=== PATIENT | female | born 1970 | race Caucasian/White ===

== ENCOUNTER 2019-06-12 15:08 | Outpatient (CLI) | payer BC, SELFPAY ==
--- NOTE | ~2019-06-12 | CT_ITS ---
EXAMINATION: CT abdomen wo con DATE: 06/12/2019 15:33 INDICATION: Abdominal pain TECHNIQUE: Computed tomography (CT) of the abdomen was performed without intravenous contrast. Automa deanna exposure control and iterative reconstruction technique were employed. Exam dose: 1028.43 mGy-cm total exam DLP. COMPARISON: Right upper quadrant abdominal ultrasound FINDINGS: The lung bases are clear. Normal heart size. No pericardial or pleural effusion. The liver, gallbladder, spleen, pancreas, and adrenal glands and kidneys are unremarkable. No urinary tract calculus or hydroureteronephrosis is evident. Normal caliber of the abdominal aorta. No intraperitoneal or retroperitoneal mass lesion or adenopath y or ascites. Small sliding hiatal hernia. No bowel obstruction or intraperitoneal free air. There is prominent degenerative disc disease with associated minimal retrolisthesis at L4-5. IMPRESSION: Degenerative disc disease and associated minimal retrolisthesis at L4-5 Small sliding hiatal hernia. No other significant abnormality of the abdomen Reviewed, dictated and finalized at [facility]. Reviewed, dictated and finalized at location B. T DRYER
== END 2019-06-12 15:09 | disposition home or self-care (01) ==
LOC: ANHIMG 15:15
PROVIDERS: PCP Family Medicine; Visit Provider Physician Assistant
DX: R10.84 Generalized abdominal pain (principal); M51.36 Other intervertebral disc degeneration, lumbar region; K44.9 Diaphragmatic hernia without obstruction or gangrene
CPT/HCPCS: 74150

== ENCOUNTER 2020-12-18 10:36 | Emergency (ER) | payer BC, SELFPAY ==
[2020-12-18 10:44] VITALS: BP 140/87; PULSE 71; RESP 18; TEMP 36.6; O2SAT 98
[2020-12-18 11:06] VITALS: BP 140/87; PULSE 71; RESP 18; TEMP 36.6; O2SAT 98
--- NOTE | 2020-12-18 11:18 | ED.EAR ---
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 Patient states she has 1/2-week history of of R>>L ear discomfort, nominally associated with the recent swimming which seemed to worsen it. She mentions she has some right sinus tenderness and fullness; she has been seen by allergy in the past but is missed her most recent shots- but she is taking her meds. No smokers/pet triggers, fever, wheezing, CP, loss of taste or smell, S OB, vomiting/diarrhea, ear discharge, neuralgic type pain Related Data Home Medications Medication Instructions Recorded Confirmed cholecalciferol (vitamin D3) 250 250 mcg PO DAILY 02/24/20 12/18/20 mcg (10,000 unit) capsule vmanaaklwpbxn-bvpktlxznyvgnvsbwt-mmfmijrkaezbi 1 cap PO DAILY 02/24/20 12/18/20 capsule montelukast 10 mg tablet 10 mg PO DAILY 02/24/20 12/18/20 omeprazole 40 mg capsule,delayed 40 mg PO DAILY 02/24/20 12/18/20 release paroxetine HCl 10 mg tablet 10 mg PO DAILY 02/24/20 12/18/20 fluticasone propionate [Flovent 100 mcg INHALATION DAILY 12/18/20 12/18/20 Diskus] rizatriptan 10 mg PO PRN PRN 12/18/20 12/18/20 Allergies Allergy/AdvReac Type Severity Reaction Status Date / Time ketorolac [From Toradol] Allergy Intermediate Itching Verified 12/18/20 11:03 pneumococcal vaccine Allergy Intermediate Swelling Verified 12/18/20 11:03 cephalexin Allergy Unknown unknown Verified 12/18/20 11:03 azelastine AdvReac Intermediate migraine Verified 12/18/20 11:03 levofloxacin AdvReac Intermediate joint pain Verified 12/18/20 11:03 Review of Systems Review of Systems: General/Constitutional: No weight loss,fever Eyes: N0: Redness,discharge Ears/Nose/Throat: No: Epistaxis,ear discharge Respiratory: Denies: Hemoptysis Gastrointestinal: No Vomiting, Bleeding-rectal Skin: No Lumps, eruption Neurologic: No Focal Weakness,Sz Hematologic: Denies: Petechiae/Purpura PMFSH Past Medical History Medical History Acid reflux Anxiety Asthma History of miscarriage History of vaginal delivery x 3 Migraine Surgical History Surgical History History of dilation and curettage History of tonsillectomy and adenoidectomy [place] teeth removed Family History Family History Mother Family history of elevated blood lipids Grandparent Cerebrovascular accident Family history of coronary artery disease Social History Social History Smoking status: Never smoker Second hand tobacco smoke exposure: No Alcohol intake: current Gender identity (if verbalized by the patient): Female Sexual Orientation (if Verbalized by the Patient): Straight or Heterosexual Comments At time of signature, agree with nursing past medical, surgical, social and family history. There is no relevant family history pertinent to the presenting complaint Exam Narrative: General Appearance: Well appearing, No distress EYE: PERRLA, Conjunctiva clear Ears: Narrowed, slightly swollen EACs bilaterally ; TMs benign external ear normal Nose: Normal nose Mouth/Throat: Normal appearing, Normal lips, Supple Respiratory: Airway patent, No respiratory distress Musculoskeletal: Full ROM Skin: Warm, Dry Neurological: A&O x3, CN II-X intact Psychiatric: Normal mood, Normal affect Course Vital Signs Vital signs: Vital Signs Temperature 97.9 F 12/18/20 10:44 Pulse Rate 71 12/18/20 10:44 Respiratory Rate 18 12/18/20 10:44 Blood Pressure 140/87 12/18/20 10:44 Pulse Oximetry 98 12/18/20 10:44 Temperature 97.9 F
[2020-12-20 23:32] LABS: SARS-CoV-2 RNA PCR Negative
== END 2020-12-18 11:28 | disposition home or self-care (01) ==
PROVIDERS: Emergency Provider Emergency Medicine; PCP Family Medicine
DX: H92.01 Otalgia, right ear (principal); Z20.822 Contact with and (suspected) exposure to COVID-19; K21.9 Gastro-esophageal reflux disease without esophagitis; J45.909 Unspecified asthma, uncomplicated; F41.9 Anxiety disorder, unspecified
CPT/HCPCS: 99213; C9803; G0463; U0003; U0005

== ENCOUNTER 2021-04-19 11:48 | Emergency (ER) | payer BC, SELFPAY ==
--- NOTE | 2021-04-19 11:51 | ED.URI ---
HPI - URI/Sore Throat General Chief Complaint: Upper Respiratory Infection Stated Complaint: Fever,Cough,Headache Time Seen by Provider: 04/19/21 11:51 Source: patient and RN notes reviewed History of Present Illness HPI Narrative: Patient is a 51-year-old female who presents the urgent care with complaints of headache, fever, body aches, cough and congestion. Patient does have a history of asthma and has been taking her inhaler and daily antihistamine. Patient has had positive exposures to influenza and Covid at work. Patient is a registered nurse at [employer]. Patient has been taking Aleve for her symptoms. Patient has not tested yet for Covid. No other complaints. No acute distress noted. Patient aware of the plan of care. Some parts of this dictation were generated by voice recognition software and may contain typographical and/or grammatical inaccuracies. Related Data Home Medications Medication Instructions Recorded Confirmed cholecalciferol (vitamin D3) 25 mcg PO DAILY 04/19/21 04/19/21 fluticasone propionate [Flovent 100 mcg INHALATION BID 04/19/21 04/19/21 Diskus] montelukast 10 mg DAILY 04/19/21 04/19/21 paroxetine HCl 10 mg PO DAILY 04/19/21 04/19/21 Allergies Allergy/AdvReac Type Severity Reaction Status Date / Time ketorolac [From Toradol] Allergy Intermediate Itching Verified 04/19/21 12:10 pneumococcal vaccine Allergy Intermediate Swelling Verified 04/19/21 12:10 cephalexin Allergy Unknown unknown Verified 04/19/21 12:10 azelastine AdvReac Intermediate migraine Verified 04/19/21 12:10 levofloxacin AdvReac Intermediate joint pain Verified 04/19/21 12:10 Review of Systems Review of Systems: CONSTITUTIONAL: Reports a fever EYES: Denies visual changes, redness, or discharge. ENT: Reports of sinus congestion, postnasal drainage CARDIOVASCULAR: Denies chest pain, palpitations, or edema. RESPIRATORY: Reports of cough and chest congestion GASTROINTESTINAL: Denies abdominal pain, nausea, vomiting, or diarrhea. GENITOURINARY: Denies dysuria or hematuria. SKIN: Denies rash or itching. MUSCULOSKELETAL: Denies back pain, joint pain, or myalgia. NEUROLOGIC: Reports of headache All other systems reviewed are negative, except as documented in HPI. [facility] Past Medical History Medical History Acid reflux Anxiety Asthma History of miscarriage History of vaginal delivery x 3 Migraine Surgical History Surgical History History of dilation and curettage History of tonsillectomy and adenoidectomy Hx of oral surgery [place] teeth removed Family History Family History Mother Family history of elevated blood lipids Grandparent Cerebrovascular accident Family history of coronary artery disease Social History Social History Smoking status: Never smoker Second hand tobacco smoke exposure: No Alcohol intake: current Gender identity (if verbalized by the patient): Female Sexual Orientation (if Verbalized by the Patient): Straight or Heterosexual Comments At the time of my signature, I reviewed and agree with the nursing past medical, surgical, social, and family history. There is no relevant family history pertinent to the patient complaint. Exam Narrative: GENERAL: This is a well-nourished, well-developed patient. Appears slightly fatigued HEAD: normocephalic, atraumatic. EYES: PERRL. Sclera clear/white. Vision is grossly intact. EARS: External ears normal, auditory canals clear and without drainage, TMs normal without perforation. Hearing grossly intact. NOSE: External nose normal with no obvious nasal discharge, nares without redness, clear to yellow rhinorrhea. THROAT: Mucous membranes moist, posterior pharynx clear. Moderate postnasal drainage NECK: Neck supple CARDIOVAS
[2021-04-19 11:57] VITALS: BP 148/92; PULSE 67; RESP 20; TEMP 36.6; O2SAT 100
== END 2021-04-19 12:25 | disposition home or self-care (01) ==
PROVIDERS: Emergency Provider Nurse Practitioner Family; PCP Family Medicine
DX: J06.9 Acute upper respiratory infection, unspecified (principal); Z20.822 Contact with and (suspected) exposure to COVID-19; K21.9 Gastro-esophageal reflux disease without esophagitis; J45.909 Unspecified asthma, uncomplicated; F41.9 Anxiety disorder, unspecified
CPT/HCPCS: 87081; 87804; 87880; 99213; G0463

== ENCOUNTER → 2021-04-21 01:42 | Outpatient (CLI) | payer BC, SELFPAY ==
[2021-04-21 20:34] LABS: SARS-CoV-2 RNA PCR Positive
== END ==
PROVIDERS: PCP Family Medicine; Visit Provider Nurse Practitioner Family
DX: U07.1 COVID-19 (principal)
CPT/HCPCS: C9803; U0003; U0005

== ENCOUNTER 2021-04-29 17:38 | Outpatient (CLI) | payer BC, SELFPAY ==
--- NOTE | ~2021-04-29 | XR_ITS ---
EXAMINATION: XR chest 2V EXAM DATE: 04/29/2021 17:51 INDICATION: COVID+ 12/30,SOB W/Exertion,Cough,No Hx TECHNIQUE: Frontal and lateral projections of the chest obtained and reviewed. There is no prior esau dy for comparison. FINDINGS: The lungs are clear. There are no pleural effusions. The cardiomediastinal silhouette is within normal limits. There is no pneumothorax suspected. The bones and soft tissues are unremarkab le. IMPRESSION: No acute cardiopulmonary findings. Reviewed, dictated and finalized at location G. IRER CYLINDER HEADS
== END 2021-04-29 17:39 | disposition home or self-care (01) ==
PROVIDERS: PCP Family Medicine; Visit Provider Family Medicine
DX: R06.02 Shortness of breath (principal)
CPT/HCPCS: 71046

== ENCOUNTER → 2021-05-18 12:31 | Outpatient (CLI) | payer BC, SELFPAY ==
--- NOTE | ~2021-05-18 | MM_ITS ---
EXAMINATION: MM screening [facility] BI w jasmin HISTORY: Screening mammogram TECHNIQUE: Craniocaudal and mediolateral oblique 3-D tomosynthesis images were obtained and synthetic 2-D images were generated. CAD analysis was submitted and interpreted. COMPARISON: 07/15/2015, 05/28/2012 BREAST PARENCHYMAL COMPOSITION: There are scattered areas of fibroglandular density. FINDINGS: There is no evidence of suspicious mass, calcification, or architectural distortion to sugg est malignancy in either breast. There has been no suspicious interval change. IMPRESSION: 1. No mammographic evidence of malignancy. 2. Recommend routine screening mammography in one year. BI-RADS Category 1: Negative Reviewed, dictated and finalized at location A. ER [employer] CELL[employer] MACHINE
== END ==
PROVIDERS: PCP Physician Assistant; Visit Provider Obstetrics & Gynecology
DX: Z12.31 Encounter for screening mammogram for malignant neoplasm of breast (principal)
CPT/HCPCS: 77063; 77067

== ENCOUNTER 2022-03-05 15:06 | Emergency (ER) | payer BC, SELFPAY ==
[2022-03-05 15:21] VITALS: BP 137/80; PULSE 89; RESP 18; TEMP 36.8; O2SAT 99
--- NOTE | 2022-03-05 16:13 | ED.URI ---
HPI - URI/Sore Throat General Chief Complaint: Upper Respiratory Infection Stated Complaint: sorethroat,bilateral ear pain Time Seen by Provider: 03/05/22 15:15 Source: patient Mode of arrival: ambulatory Limitations: no limitations History of Present Illness HPI Narrative: Year old female presents to [facility] with complaints of cough, sore throat, bilateral ear pain for the past 6 days. Patient has been taking bxeo-kao-mybjjdy Mucinex and Tylenol with minimal relief. Patient reports that her son was recently ill with similar symptoms. Patient is a nonsmoker. Patient denies recent travel. Patient denies shortness of breath, wheezing, nausea, vomiting or diarrhea or fevers MD elicited complaint: cough, rhinorrhea and nasal congestion Onset (ago): day(s) (6) Exacerbating factors: nothing Related Data Home Medications Medication Instructions Recorded Confirmed fluticasone propionate 100 100 mcg inhalation BID 04/19/21 03/05/22 mcg/actuation blister powder for inhalation (Flovent Diskus) montelukast 10 mg tablet 10 mg DAILY 04/19/21 03/05/22 omeprazole 20 mg tablet,delayed 20 mg PO DAILY 03/05/22 03/05/22 release paroxetine HCl 10 mg tablet 10 mg PO DAILY 03/05/22 03/05/22 Allergies Allergy/AdvReac Type Severity Reaction Status Date / Time ketorolac [From Toradol] Allergy Intermediate Itching Verified 03/05/22 15:41 pneumococcal vaccine Allergy Intermediate Swelling Verified 03/05/22 15:41 cephalexin Allergy Unknown unknown Verified 03/05/22 15:41 azelastine AdvReac Intermediate migraine Verified 03/05/22 15:41 levofloxacin AdvReac Intermediate joint pain Verified 03/05/22 15:41 Review of Systems Constitutional: Constitutional: Denies chills, Denies fatigue, Denies fever(s) and Denies weakness ENT: Denies dizziness and Reports nasal congestion Comments: ear pain, runny nose Cardiovascular: Cardiovascular: Denies chest pain Respiratory: Respiratory: Reports cough, Denies dyspnea and Denies wheezing Integumentary/Breasts: Skin/Breast: Denies rash Neurologic: Denies vertigo and Denies dizziness PMFSH Past Medical History Medical History Acid reflux Anxiety Asthma History of miscarriage History of vaginal delivery x 3 Migraine Surgical History Surgical History History of dilation and curettage History of tonsillectomy and adenoidectomy Hx of oral surgery [place] teeth removed Family History Family History Mother Family history of elevated blood lipids Grandparent Cerebrovascular accident Family history of coronary artery disease Social History Social History Smoking status: Never smoker Second hand tobacco smoke exposure: No Alcohol intake: current Gender identity (if verbalized by the patient): Female Sexual Orientation (if Verbalized by the Patient): Straight or Heterosexual Comments At time of signature, I agree with nursing past medical, surgical, social and family history. There is no relevant family history pertinent to the presenting complaint. Exam Const: General: healthy appearing Nutritional Appearance: well nourished Orientation/consciousness: patient oriented x3 Limitations: no limitations HENMT: Head: normal to inspection Ears: external ears normal and TM abnormal wth effusion serous bilateral and erythematous on the left Face and sinus: normal facial exam Throat: posterior oropharynx normal and uvula midline Other: Mild nasal congestion noted Eyes: Conjunctivae: conjunctivae normal Neck: Neck: normal visual inspection Resp: Effort & Inspection: normal respiratory effort and not labored Auscultation: clear to auscultation bilaterally, no crackles, no rales, no rhonchi and no wheezes Cardio: Rate: regular rate Rhythm: regular rhy
== END 2022-03-05 16:25 | disposition home or self-care (01) ==
PROVIDERS: Emergency Provider Nurse Practitioner Family; PCP Family Medicine
DX: J06.9 Acute upper respiratory infection, unspecified (principal); K21.9 Gastro-esophageal reflux disease without esophagitis; J45.909 Unspecified asthma, uncomplicated; F41.9 Anxiety disorder, unspecified
CPT/HCPCS: 87081; 87804; 87880; 99213; G0463

== ENCOUNTER 2022-05-10 01:29 | Day surgery (SDC) | payer BC, SELFPAY ==
[2022-04-27 13:11] VITALS: BMI 39.9
--- NOTE | 2022-05-09 12:36 | PM.HPGS ---
History of Present Illness History of Present Illness Consent: Risks, benefits, and alternatives have been discussed and questions answered. Patient agrees to proceed with procedure. Chief complaint: neoplasm screening Narrative: Opal Smith is a 52 year old female was referred for colon cancer screening. Review of Systems Review of Systems: All systems reviewed & are unremarkable except as noted in HPI and below PMFSH Past Medical History Medical History Acid reflux Anxiety Asthma History of miscarriage History of vaginal delivery x 3 Migraine Surgical History Surgical History History of dilation and curettage History of tonsillectomy and adenoidectomy Hx of oral surgery [place] teeth removed Family History Family History Mother Family history of elevated blood lipids Grandparent Cerebrovascular accident Family history of coronary artery disease Social History Social History Smoking status: Never smoker Second hand tobacco smoke exposure: No Alcohol intake: current Alcohol use details: 1-2 drinks per month Substance use: never Substance use type: does not use Living arrangements: with family Gender identity (if verbalized by the patient): Female Sexual Orientation (if Verbalized by the Patient): Straight or Heterosexual Spiritual care concerns: No Meds Home Medications and Allergies Home Medications Medication Instructions Recorded Confirmed Type fluticasone propionate 100 100 mcg inhalation BID 04/19/21 04/27/22 History mcg/actuation blister powder for inhalation (Flovent Diskus) montelukast 10 mg tablet 10 mg DAILY 04/19/21 04/27/22 History omeprazole 20 mg tablet,delayed 20 mg PO DAILY 03/05/22 04/27/22 History release paroxetine HCl 10 mg tablet 10 mg PO DAILY 03/05/22 04/27/22 History cholecalciferol (vitamin D3) 250 250 mcg PO DAILY 03/28/22 04/27/22 History mcg (10,000 unit) capsule zinc sulfate 25 mg zinc (110 mg) 25 mg PO DAILY 03/28/22 04/27/22 History tablet Allergies Allergy/AdvReac Type Severity Reaction Status Date / Time ketorolac [From Toradol] Allergy Intermediate Itching Verified 05/10/22 07:00 pneumococcal vaccine Allergy Intermediate Swelling Verified 05/10/22 07:00 azelastine AdvReac Intermediate migraine Verified 05/10/22 07:00 cephalexin AdvReac Intermediate Joint Pain Verified 05/10/22 07:00 Exam Const: General: alert Orientation/consciousness: patient oriented x3 Resp: Auscultation: clear to auscultation bilaterally Cardio: Rhythm: regular rhythm GI: GI Palp: Yes Soft to palpation and No Tenderness to palpation present (GI) Neuro: General: patient oriented x3 Assessment and Plan Assessment and plan (1) Colon cancer screening: Code(s): Z12.11 - Encounter for screening for malignant neoplasm of colon Status: Acute Assessment and Plan: Colonoscopy with possible biopsy or polypectomy or cautery or injection of substances.
[2022-05-10 07:01] VITALS: BP 137/86; PULSE 70; RESP 18; TEMP 36.3; O2SAT 98
[2022-05-10] MEDS: LACTATED RINGERS 1,000 ML 150 ML IV CONT (07:11)
--- NOTE | 2022-05-10 07:23 | WPDANESEPPF ---
Anes - Initial Pre Proc Eval Procedure: Operation Date: 05/10/22 08:00 Proposed Procedures p Screening Colonoscopy - Ahsan Valdes MD Date/Time: 05/10/22 07:23 Surgeon: Ahsan Valdes MD Pre Op Diagnosis: neoplasm screening Patient Data Age: 52 Gender: F Height: 1.7 m Weight: 117.5 kg Last Vital Signs Temp 97.3 F L 05/10/22 07:01 Pulse 70 05/10/22 07:01 Resp 18 05/10/22 07:01 BP 137/86 05/10/22 07:01 Pulse Ox 98 05/10/22 07:01 O2 Del Method Room Air 05/10/22 07:01 Allergies Allergy/AdvReac Type Severity Reaction Status Date / Time ketorolac [From Toradol] Allergy Intermediate Itching Verified 05/10/22 07:00 pneumococcal vaccine Allergy Intermediate Swelling Verified 05/10/22 07:00 azelastine AdvReac Intermediate migraine Verified 05/10/22 07:00 cephalexin AdvReac Intermediate Joint Pain Verified 05/10/22 07:00 Home Medications Medication Instructions Recorded Confirmed Type fluticasone propionate 100 100 mcg inhalation BID 04/19/21 04/27/22 History mcg/actuation blister powder for inhalation (Flovent Diskus) montelukast 10 mg tablet 10 mg DAILY 04/19/21 04/27/22 History omeprazole 20 mg tablet,delayed 20 mg PO DAILY 03/05/22 04/27/22 History release paroxetine HCl 10 mg tablet 10 mg PO DAILY 03/05/22 04/27/22 History cholecalciferol (vitamin D3) 250 250 mcg PO DAILY 03/28/22 04/27/22 History mcg (10,000 unit) capsule zinc sulfate 25 mg zinc (110 mg) 25 mg PO DAILY 03/28/22 04/27/22 History tablet Patient hx anesthesia problems: none Family hx anesthesia problems: none Results Review: All pre-operative results and documents have been reviewed as part of the pre-operative evaluation. [facility] Past Medical History Medical History Acid reflux Anxiety Asthma History of miscarriage History of vaginal delivery x 3 Migraine Surgical History Surgical History History of dilation and curettage History of tonsillectomy and adenoidectomy Hx of oral surgery [place] teeth removed Family History Family History Mother Family history of elevated blood lipids Grandparent Cerebrovascular accident Family history of coronary artery disease Social History Social History Smoking status: Never smoker Second hand tobacco smoke exposure: No Alcohol intake: current Alcohol use details: 1-2 drinks per month Substance use: never Substance use type: does not use Living arrangements: with family Gender identity (if verbalized by the patient): Female Sexual Orientation (if Verbalized by the Patient): Straight or Heterosexual Spiritual care concerns: No Anes - Eval Final PreProcedure Day of Procedure 05/10/22 07:23 Patient weight: morbidly obese Heart: regular rate and rhythm Lungs: clear to auscultation Airway: Mallampati scale class II Neurological: alert and oriented Last oral intake: >/= 8 hours ASA classification: III Emergent: no Anesthetic plan: proceed Anesthesia type and monitoring: general GIVS and standard monitoring Results Review: All pre-operative results and documents have been reviewed as part of the pre-operative evaluation. Informed Consent: The patient's anesthetic plan and its attendant risks and benefits were discussed with the patient/family/POA. Questions were solicited and answers provided to the satisfaction of the patient/family/POA.
[2022-05-10 08:05] VITALS: BP 102/63; PULSE 68; RESP 15; O2SAT 98
[2022-05-10 08:15] VITALS: BP 100/67; PULSE 60; RESP 15; O2SAT 99
[2022-05-10 08:25] VITALS: BP 127/76; PULSE 60; RESP 17; O2SAT 100
== END 2022-05-10 08:39 | disposition home or self-care (01) ==
PROVIDERS: PCP Family Medicine; Visit Provider Internal Medicine Gastroenterology
PROC: 0DJD8ZZ Inspection of Lower Intestinal Tract, Via Natural or Artificial Opening Endoscopic (ICD-10-PCS; CPT 45378; principal; 2022-05-10 08:00)
DX: Z12.11 Encounter for screening for malignant neoplasm of colon (principal); K57.30 Diverticulosis of large intestine without perforation or abscess without bleeding; K21.9 Gastro-esophageal reflux disease without esophagitis; F41.9 Anxiety disorder, unspecified; J45.909 Unspecified asthma, uncomplicated; G43.909 Migraine, unspecified, not intractable, without status migrainosus; F10.90 Alcohol use, unspecified, uncomplicated; Z79.51 Long term (current) use of inhaled steroids; Z79.899 Other long term (current) drug therapy
CPT/HCPCS: 45378; J2704; J7120

== ENCOUNTER → 2022-06-21 11:30 | Outpatient (CLI) | payer BC, SELFPAY ==
--- NOTE | ~2022-06-21 | MM_ITS ---
EXAMINATION: MM screening [facility] BI w jasmin HISTORY: Screening mammogram TECHNIQUE: Craniocaudal and mediolateral oblique 3-D tomosynthesis images were obtained and synthetic 2-D images were generated. CAD analysis was submitted and interpreted. COMPARISON: 05/18/2021, 07/11/2015 bilateral screening mammogram examinations BREAST PARENCHYMAL COMPOSITION: There are scattered areas of fibroglandular density. FINDINGS: There is no evidence of suspicious mass, calcification, or architectural distortion to sugg est malignancy in either breast. There has been no suspicious interval change. IMPRESSION: 1. No mammographic evidence of malignancy. 2. Recommend routine screening mammography in one year. BI-RADS Category 1: Negative Reviewed, dictated and finalized at location A. SOLE FITTER
== END ==
PROVIDERS: PCP Physician Assistant; Visit Provider Obstetrics & Gynecology
DX: Z12.31 Encounter for screening mammogram for malignant neoplasm of breast (principal)
CPT/HCPCS: 77063; 77067

== ENCOUNTER 2022-11-03 12:02 | Emergency (ER) | payer BC, SELFPAY ==
[2022-11-03 12:12] VITALS: BP 135/79; PULSE 71; RESP 18; TEMP 36.3; O2SAT 99
--- NOTE | 2022-11-03 12:43 | ED.URI ---
HPI - URI/Sore Throat General Chief Complaint: Upper Respiratory Infection Stated Complaint: Cough,Runny Nose Time Seen by Provider: 11/03/22 12:37 Source: patient and RN notes reviewed Mode of arrival: ambulatory Limitations: no limitations History of Present Illness HPI Narrative: Patient presents today complaining of a 10 day history of cough, rhinorrhea, nasal congestion with sinus pressure, postnasal drip. Denies shortness of breath, wheezing, fever. She has been taking Mucinex D, Tylenol, Aleve, and using her albuterol inhaler with some relief. History of asthma. Related Data Home Medications Medication Instructions Recorded Confirmed fluticasone propionate 100 100 mcg inhalation BID 04/19/21 11/03/22 mcg/actuation blister powder for inhalation (Flovent Diskus) montelukast 10 mg tablet 10 mg DAILY 04/19/21 11/03/22 cholecalciferol (vitamin D3) 250 250 mcg PO DAILY 03/28/22 11/03/22 mcg (10,000 unit) capsule zinc sulfate 25 mg zinc (110 mg) 25 mg PO DAILY 03/28/22 11/03/22 tablet ketoconazole 2 % shampoo 5 ml topical DAILY 07/05/22 11/03/22 omeprazole 20 mg tablet,delayed 40 mg PO DAILY 07/05/22 11/03/22 release Allergies Allergy/AdvReac Type Severity Reaction Status Date / Time pneumococcal vaccine Allergy Intermediate Swelling Verified 11/03/22 12:15 azelastine AdvReac Intermediate migraine Verified 11/03/22 12:15 cephalexin AdvReac Intermediate Joint Pain Verified 11/03/22 12:15 ketorolac [From Toradol] AdvReac Mild Itching Verified 11/03/22 12:15 Review of Systems Review of Systems: CONSTITUTIONAL: Denies body aches, fever, chills, or sweats. EYES: Denies visual changes, redness, or discharge. ENT: Denies rsore throat, or otalgia.+ rhinorrhea, congestion, postnasal drip, sinus pressure CARDIOVASCULAR: Denies chest pain, palpitations, or edema. RESPIRATORY: Denies dyspnea.+ cough GASTROINTESTINAL: Denies abdominal pain, nausea, vomiting, or diarrhea. GENITOURINARY: Denies dysuria or hematuria. SKIN: Denies rash, itching, or wounds. MUSCULOSKELETAL: Denies back pain, joint pain, or myalgia. NEUROLOGIC: Denies headache, numbness, tingling, or weakness. PSYCH: Denies depression or anxiety. [facility] Past Medical History Medical History Acid reflux Allergic rhinitis Anxiety Asthma Migraine PCOS (polycystic ovarian syndrome) Reactive airway disease Surgical History Surgical History History of dilation and curettage 01/2002 History of tonsillectomy and adenoidectomy 1984 Hx of oral surgery [place] teeth removed Family History Family History Mother Family history of elevated blood lipids Grandparent Cerebrovascular accident Family history of coronary artery disease Social History Social History Smoking status: Never smoker Second hand tobacco smoke exposure: No Alcohol intake: current Alcohol use details: 1-2 drinks per month Substance use: never Substance use type: does not use Lack of Transportation: No Lack of Food: Never True Current Housing: I Have Housing Concerned About Future Housing: No Difficulty Paying Gas/Electric Bills: No Difficulty Paying for Meds: No Currently Unemployed: No Education: Associate Degree Difficulty w/ Childcare or Family Care: No Living arrangements: with family Occupation/Education: occupation Gender identity (if verbalized by the patient): Female Sexual Orientation (if Verbalized by the Patient): Straight or Heterosexual Spiritual care concerns: No Comments At time of signature, I have reviewed and agree with nursing past medical, surgical, social and family history unless otherwise noted. Please see nursing chart for further information. There is no relevant f
== END 2022-11-03 12:50 | disposition home or self-care (01) ==
PROVIDERS: Emergency Provider Nurse Practitioner; PCP Family Medicine
DX: J32.9 Chronic sinusitis, unspecified (principal); J45.901 Unspecified asthma with (acute) exacerbation; K21.9 Gastro-esophageal reflux disease without esophagitis; E28.2 Polycystic ovarian syndrome; F41.9 Anxiety disorder, unspecified
CPT/HCPCS: 99213; G0463

== ENCOUNTER 2023-05-07 14:55 | Outpatient (CLI) | payer BC, SELFPAY ==
--- NOTE | ~2023-05-07 | XR_ITS ---
EXAMINATION: XR hand LT min 3V INDICATION: Osteoarthritis of the first carpometacarpal joint TECHNIQUE: Three views of the left hand are obtained. COMPARISON: 07/08/2014 FINDINGS: There is advanced osteoarthritis at the first carpometacarpal joint. Advanced osteoarthriti s is also noted at the third and fourth distal interphalangeal joints. There is mild osteoarthritis o f the remaining interphalangeal joints. There is no fracture. The soft tissues are unremarkable. IMPRESSION: 1. Polyarticular osteoarthritis. Reviewed, dictated and finalized at location F. NG MACHINE SET UP OPERATOR
--- NOTE | ~2023-05-07 | XR_ITS ---
EXAMINATION: XR hand RT min 3V INDICATION: Osteoarthritis of the first carpometacarpal joint TECHNIQUE: Three views of the right hand are obtained. COMPARISON: None available FINDINGS: There is advanced osteoarthritis of the first carpometacarpal joint and third distal interp halangeal joint. There is moderate osteoarthritis of the fifth distal interphalangeal joint. There is mild osteoarthritis of the remaining interphalangeal joints. There is no fracture. The soft tissues are unremarkable. IMPRESSION: 1. Polyarticular osteoarthritis. Reviewed, dictated and finalized at location F. O SCRIPT WRITER
== END 2023-05-07 14:56 | disposition home or self-care (01) ==
LOC: ANHIMG 14:58
PROVIDERS: PCP Family Medicine; Visit Provider Plastic Surgery
DX: M19.041 Primary osteoarthritis, right hand (principal); M19.042 Primary osteoarthritis, left hand
CPT/HCPCS: 73130

== ENCOUNTER 2023-05-12 09:33 | Emergency (ER) | payer BC, SELFPAY ==
--- NOTE | ~2023-05-12 | XR_ITS ---
XR chest 2V DATE: 05/12/2023 10:04 INDICATION: Cough for 2 or 3 days. History of asthma. TECHNIQUE: 2 views COMPARISON: 04/29/2021 2 view chest FINDINGS: Normal heart size. No hilar or mediastinal enlargement. The lungs are clear of infiltrate o r consolidation. No pleural effusion or pulmonary vascular congestion or pneumothorax. Mild degenerative spurring of the thoracic spine. IMPRESSION: No active cardiac pulmonary disease Reviewed, dictated and finalized at location A. INTERNSHIP
--- NOTE | 2023-05-12 09:39 | ED.URI ---
HPI - URI/Sore Throat General Chief Complaint: Upper Respiratory Infection Stated Complaint: flu/covid like symptoms Time Seen by Provider: 05/12/23 09:46 Source: patient, RN notes reviewed and old records reviewed Mode of arrival: ambulatory Limitations: no limitations History of Present Illness HPI Narrative: 53-year-old female presents to the [facility] with concerns for flu and COVID. Patient reports multiple exposures to flu and COVID. States 3-4 days ago started with a cough, fatigue, chills without fever, nasal rhinorrhea. Has been taking Mucinex, using her albuterol as well as taking even Tylenol. States she used her albuterol about 30 minutes prior to arrival. Onset (ago): day(s) (3-4) Treatments prior to arrival: acetaminophen, ibuprofen and cold medicine Related Data Home Medications Medication Instructions Recorded Confirmed fluticasone propionate 100 100 mcg inhalation BID 04/19/21 05/12/23 mcg/actuation blister powder for inhalation (Flovent Diskus) montelukast 10 mg tablet 10 mg DAILY 04/19/21 05/12/23 cholecalciferol (vitamin D3) 250 250 mcg PO DAILY 03/28/22 05/12/23 mcg (10,000 unit) capsule zinc sulfate 25 mg zinc (110 mg) 25 mg PO DAILY 03/28/22 05/12/23 tablet ketoconazole 2 % shampoo 5 ml topical DAILY 07/05/22 05/12/23 omeprazole 20 mg tablet,delayed 40 mg PO DAILY 07/05/22 05/12/23 release albuterol sulfate 90 mcg/actuation 2 puff inhalation Q4-6H PRN 12/05/22 05/12/23 aerosol inhaler (Ventolin HFA) shortness of breath or wheezing alprazolam 0.5 mg tablet 0.5 mg PO DAILY PRN anxiety 12/05/22 05/12/23 multivitamin 1 tablet PO DAILY 05/01/23 05/12/23 Allergies Allergy/AdvReac Type Severity Reaction Status Date / Time pneumococcal vaccine Allergy Intermediate Swelling Verified 05/12/23 09:47 azelastine AdvReac Intermediate migraine Verified 05/12/23 09:47 cephalexin AdvReac Intermediate Joint Pain Verified 05/12/23 09:47 ketorolac [From Toradol] AdvReac Mild Itching Verified 05/12/23 09:47 Review of Systems Review of Systems: All systems reviewed & are unremarkable except as noted in HPI and below Constitutional: Constitutional: Reports no additional constitutional complaints Eyes: Eyes: Reports no additional eye complaints ENT: Reports as per HPI Cardiovascular: Cardiovascular: Reports no additional cardiovascular complaints, Denies chest pain and Denies dyspnea Respiratory: Respiratory: Reports as per HPI, Denies chest congestion, Reports cough and Denies dyspnea Gastrointestinal: Gastrointestinal: Reports no additional gastrointestinal complaints, Denies abdominal pain, Denies nausea and Denies vomiting Musculoskeletal: Musculoskeletal: Reports no additional musculoskeletal complaints Integumentary/Breasts: Skin/Breast: Reports system reviewed and no additional complaints, except as docu Neurologic: Reports system reviewed and no additional complaints, except as documented Psychiatric: Psychiatric: Reports no additional psychiatric complaints Allergic/Immunologic: Allergic/Immunologic: Reports no additional allergic/immunologic complaints PMFSH Past Medical History Medical History Acid reflux Allergic rhinitis Anxiety Asthma Hypertension Migraine PCOS (polycystic ovarian syndrome) Reactive airway disease Surgical History Surgical History History of dilation and curettage 01/2002 History of tonsillectomy and adenoidectomy 1985 Hx of oral surgery [place] teeth removed Family History Family History Mother Family history of elevated blood lipids Grandparent Cerebrovascular accident Family history of coronary artery disease Social History Social History Smoking status: Never smoker Second hand tobacco smoke exposure: No Alcohol int
[2023-05-12 09:47] VITALS: BP 130/81; PULSE 89; RESP 18; TEMP 36.9; O2SAT 100
[2023-05-12 09:48] VITALS: BP 130/81; PULSE 89; RESP 18; TEMP 36.9; O2SAT 100
== END 2023-05-12 10:33 | disposition home or self-care (01) ==
PROVIDERS: Emergency Provider Nurse Practitioner; PCP Family Medicine
DX: J40 Bronchitis, not specified as acute or chronic (principal); Z20.822 Contact with and (suspected) exposure to COVID-19; K21.9 Gastro-esophageal reflux disease without esophagitis; J45.909 Unspecified asthma, uncomplicated; I10 Essential (primary) hypertension; E28.2 Polycystic ovarian syndrome
CPT/HCPCS: 71046; 87426; 87804; 99213; G0463

== ENCOUNTER 2023-06-26 11:00 | Outpatient (RCR) | payer BC, SELFPAY ==
--- NOTE | 2023-05-28 15:28 | OTOPEVAL1 ---
Assessment and note entered by Keon Arellano, MANNY/Gisela, CHT Evaluation Information Diagnosis Bilateral basal joint arthritis Subjective Information Patient is right handed, reports pain is worse on the right than the left. Reports symptoms for years . Has had injections in the past with relief and received another round of injections on . Reports she is limited by pain and weakness, noting difficulties with opening jars, doing housework, and patient care. Reported Pain Level Pain Score 2: Self Report Additional Pain Score Comments Patient reports she typically 2/10, never gets to 0/10. Pain can get up to 6/10 on a busier day. Occasionally gets up to 10/10. Assessment OT Clinical Summary Patient referred to OT with dx of bilateral 1st CMC OA. She presents with stiffness, weakness, and pain that limits bilateral hand use for ADLs, IADLs, and work tasks. Skilled OT indicated for orthotic fabrication, modalities, manual therapy, therapeutic exercise, joint protection techniques, and HEP instruction to facilitate reduced pain and improved functional hand use. Plan of Care Interventions Manual Therapy,Therapeutic Activities,Check Out for Orthotic/Pr,Ultrasound,Paraffin OT Services Indicated Yes Treatment Frequency and 1-2x/week for 8 visits Duration These treatments will address the objective and functional deficits as defined above. The patient will be advanced safely and appropriately in order for the patient to progress towards his/her prior level of function. Additional exercises will be introduced and as well as a comprehensive home exercise program upon discharge, if needed, ?to ensure carryover of functional gains achieved in the clinic. This treatment plan has been reviewed and agreement upon by the patient.
--- NOTE | 2023-06-26 11:55 | OTOPDC ---
Assessment and note entered by Keon Arellano, MANNY/Gisela, CHT Discharge Summary 06/26/23 Diagnosis Bilateral basal joint arthritis Subjective Information Patient has completed a month of therapy for bilateral thumb CMC OA. She has been compliant with splints and reports experiencing less pain on a daily basis. 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 She reports she feels some residual weakness, noting difficulties with opening soda bottles and jars. Reported Pain Level Pain Score 1/10, bilateral thumbs This improved from a constant 2/10. She no longer gets above 2/10. Prior to therapy she was experiencing 8-10/10 pain on a regular basis. Assessment OT Clinical Summary Patient referred to OT with dx of bilateral 1st CMC OA. She has made excellent progress with therapy with reduced pain and improved functional hand use. She demonstrates excellent understanding of joint protection techniques and splint wearing schedule. She continues to have residual weakness , but is independent with HEP for strengthening. She understands that strengthening will take time. No further skilled OT indicated at this time. D/C with HEP. Plan of Care OT Services Indicated No
== END 2023-06-26 13:39 | disposition home or self-care (01) ==
LOC: ANHOT 11:00
PROVIDERS: PCP Family Medicine; Visit Provider Plastic Surgery
DX: M18.9 Osteoarthritis of first carpometacarpal joint, unspecified (principal)
CPT/HCPCS: 97018; 97110; 97140; 97165; L3913

== ENCOUNTER 2023-08-23 10:30 | Outpatient (CLI) | payer BC, SELFPAY ==
--- NOTE | ~2023-08-23 | MM_ITS ---
EXAMINATION: MM screening [place] BI w jasmin HISTORY: Screening mammogram TECHNIQUE: Craniocaudal and mediolateral oblique 3-D tomosynthesis images were obtained and synthetic 2-D images were generated. CAD analysis was submitted and interpreted. COMPARISON: 06/21/2022, 05/18/2021 bilateral screening mammogram examinations BREAST PARENCHYMAL COMPOSITION: The breasts are almost entirely fatty. FINDINGS: There is no evidence of suspicious mass, calcification, or architectural distortion to sugg est malignancy in either breast. There has been no suspicious interval change. IMPRESSION: 1. No mammographic evidence of malignancy. 2. Recommend routine screening mammography in one year. BI-RADS Category 1: Negative Reviewed, dictated and finalized at location A.
== END 2023-08-23 10:31 ==
LOC: MICIMG 10:30
PROVIDERS: PCP Physician Assistant; Visit Provider Obstetrics & Gynecology
DX: Z12.31 Encounter for screening mammogram for malignant neoplasm of breast (principal)
CPT/HCPCS: 77063; 77067

== ENCOUNTER 2023-11-28 17:06 | Emergency (ER) | payer BC, SELFPAY ==
[2023-11-28 17:24] VITALS: BP 143/75; PULSE 65; RESP 18; TEMP 36.9; O2SAT 98
--- NOTE | 2023-11-28 17:46 | ED.BACK ---
HPI - Back Pain/Injury General Chief Complaint: Back Pain/Injury Stated Complaint: back pain Time Seen by Provider: 11/28/23 17:46 Source: patient Mode of arrival: ambulatory Limitations: no limitations History of Present Illness HPI Narrative: 53-year-old female with history of degenerative chest disease presents with complaint of low back pain for the past 2-3 weeks. Started after getting home from vacation. Drove long period of time in car. Started taking Advil, back symptoms got progressively worse and now has sciatica into left buttock and left hip. Patient states unable to take ibuprofen due to irritating stomach and now things Advil is causing upset stomach. Called PCP and her doctor is out of town. Ambulatory with steady gait. Noted numbness or tingling. Denies weakness to lower extremities. No loss of bowel or bladder. Patient reports in the past she has gone to physical therapy to treat sciatica. All systems reviewed and negative except as noted above. Related Data Home Medications Medication Instructions Recorded Confirmed montelukast 10 mg tablet 10 mg DAILY 04/19/21 11/28/23 cholecalciferol (vitamin D3) 250 250 mcg PO DAILY 03/28/22 11/28/23 mcg (10,000 unit) capsule ketoconazole 2 % shampoo 5 ml topical DAILY 07/05/22 11/28/23 omeprazole 20 mg tablet,delayed 40 mg PO DAILY 07/05/22 11/28/23 release albuterol sulfate 90 mcg/actuation 2 puff inhalation Q4-6H PRN 12/05/22 11/28/23 aerosol inhaler (Ventolin HFA) shortness of breath or wheezing alprazolam 0.5 mg tablet 0.5 mg PO DAILY PRN anxiety 12/05/22 11/28/23 multivitamin 1 tablet PO DAILY 05/01/23 11/28/23 mometasone 100 mcg/actuation HFA inhalation 11/28/23 11/28/23 aerosol inhaler (Asmanex HFA) Allergies Allergy/AdvReac Type Severity Reaction Status Date / Time azelastine Allergy Intermediate migraine Verified 11/28/23 17:41 pneumococcal vaccine Allergy Intermediate Swelling Verified 11/28/23 17:41 cephalexin AdvReac Intermediate Joint Pain Verified 11/28/23 17:41 ketorolac [From Toradol] AdvReac Mild Itching Verified 11/28/23 17:41 lisinopril AdvReac Cough Verified 11/28/23 17:42 Review of Systems Review of Systems: CONSTITUTIONAL: Denies fever, chills, or sweats. EYES: Denies visual changes, redness, or discharge. ENT: Denies rhinorrhea, congestion, sore throat, or otalgia. CARDIOVASCULAR: Denies chest pain, palpitations, or edema. RESPIRATORY: Denies cough or dyspnea. GASTROINTESTINAL: Denies abdominal pain, nausea, vomiting, or diarrhea. GENITOURINARY: Denies dysuria or hematuria. SKIN: Denies rash or itching. MUSCULOSKELETAL: Reports low back pain radiating to left buttock and left hip. NEUROLOGIC: Denies headache, numbness, or weakness. PSYCHIATRIC: Denies anxiety or depression. All other systems reviewed are negative, except as documented in HPI. REPLACED BY [facility] Past Medical History Medical History Acid reflux Allergic rhinitis Anxiety Asthma Hypertension Migraine PCOS (polycystic ovarian syndrome) Reactive airway disease Surgical History Surgical History History of dilation and curettage 01/2002 History of tonsillectomy and adenoidectomy 1985 Hx of oral surgery [place] teeth removed Family History Family History Mother Family history of elevated blood lipids Grandparent Cerebrovascular accident Family history of coronary artery disease Social History Social History Smoking status: Never smoker Second hand tobacco smoke exposure: No Alcohol intake: current Alcohol use details: 1-2 drinks per month Substance use: never Substance use type: does not use Lack of Transportation: No Lack of Food: Never True Current Housing: I Have Housing Concerned About Future Housing: No Difficulty P
[2023-11-28] MEDS: diphenhydrAMINE HCl CAP 25 MG CAPSULE 50 MG PO (18:13)
[2023-11-28] MEDS: KETOROLAC (*BKC) 60 MG/2 ML VIAL IM (18:14)
== END 2023-11-28 18:33 | disposition home or self-care (01) ==
PROVIDERS: Emergency Provider Nurse Practitioner Family; PCP Physician Assistant
DX: M54.42 Lumbago with sciatica, left side (principal); K21.9 Gastro-esophageal reflux disease without esophagitis; J45.909 Unspecified asthma, uncomplicated; I10 Essential (primary) hypertension; E28.2 Polycystic ovarian syndrome; F41.9 Anxiety disorder, unspecified
CPT/HCPCS: 96372; 99213; A9270; G0463; J1885

== ENCOUNTER 2024-10-30 10:53 | Outpatient (CLI) | payer BC, SELFPAY ==
--- NOTE | ~2024-10-30 | MM_ITS ---
EXAMINATION: MM screening [place] BI w jasmin HISTORY: Screening mammogram TECHNIQUE: Craniocaudal and mediolateral oblique 3-D tomosynthesis images were obtained and synthetic 2-D images were generated. CAD analysis was submitted and interpreted. COMPARISON: 09/10/2023, 06/21/2022, 05/18/2021 BREAST PARENCHYMAL COMPOSITION:Not Dense. The breasts are almost entirely fatty FINDINGS: No suspicious mass, calcification, or architectural distortion are identified in either carleen ast to suggest malignancy. There has been no suspicious interval change. IMPRESSION: No mammographic evidence of malignancy. Recommend routine screening mammography in one year. BI-RADS Category 1: Negative Reviewed, dictated and finalized at location .
== END 2024-10-30 10:54 | disposition home or self-care (01) ==
LOC: MICIMG 10:54
PROVIDERS: PCP Family Medicine; Visit Provider Nurse Practitioner Obstetrics & Gynecology
DX: Z12.31 Encounter for screening mammogram for malignant neoplasm of breast (principal)
CPT/HCPCS: 77063; 77067